=== PATIENT | female | born 1950 | race Caucasian/White ===

== ENCOUNTER 2021-09-17 12:23 | Outpatient (CLI) | payer MEDICARE, SELFPAY ==
[2021-09-17 12:32] VITALS: BP 143/64; PULSE 65; RESP 18; TEMP 36.6; O2SAT 94; BMI 37.8
[2021-09-17] MEDS: 0.9% Saline Lock 10 ML Syringe IV (12:47)
[2021-09-17 13:17] VITALS: BP 145/59; PULSE 60; RESP 16; TEMP 36.8; O2SAT 95
[2021-09-17 14:05] VITALS: BP 137/68; PULSE 59; RESP 16; TEMP 36.4; O2SAT 95
== END 2021-09-17 14:17 | disposition home or self-care (01) ==
LOC: MS3OUT 12:24 → MS3 12:24
PROVIDERS: Referring Provider Nurse Practitioner Acute Care; Visit Provider Nurse Practitioner Acute Care
DX: U07.1 COVID-19 (principal)
CPT/HCPCS: J7050; M0245; Q0245; A4216